=== PATIENT | male | born 1960 | race Caucasian/White ===

== ENCOUNTER 2022-09-01 12:38 | Emergency (ER) | payer OTHER, SELFPAY ==
[2022-09-01 12:43] VITALS: BP 136/80; PULSE 94; O2SAT 97
[2022-09-01 12:56] VITALS: BP 108/68; PULSE 80; RESP 16; O2SAT 96; BMI 43.2
--- NOTE | 2022-09-01 13:51 | PC.NURSE ---
PT REFUSES TO SPEAK TO CARE TEAM, RELAPSE WAS JUST TODAY
--- NOTE | 2022-09-01 13:51 | ED.OVERDOSE ---
HPI - Overdose General Chief Complaint: Overdose Stated Complaint: OD Time Seen by Provider: 09/01/22 13:48 Source: EMS Mode of arrival: ambulatory History of Present Illness HPI Narrative: This is a 61 years old male presented to the emergency room after an overdose heroin at the [employer] he was given Narcan by the call worker person he is now awake and alert. Denies HI and SI, does no want detox complaint: accidental overdose Onset (ago): hour(s) (2) Context: Intentional Overdose: drug/ETOH problems Context: Accidental Overdose: wanted to get high Treatments Prior to Arrival: narcan (4 mg) Related Data Allergies Allergy/AdvReac Type Severity Reaction Status Date / Time No Known Allergies Allergy Verified 09/01/22 12:51 Review of Systems Constitutional: Constitutional: Reports no additional constitutional complaints Eyes: Eyes: Reports no additional eye complaints ENT: Reports system reviewed and no additional complaints, except as documented Cardiovascular: Cardiovascular: Denies Abdominal Cramping after Meds Respiratory: Respiratory: Reports no additional respiratory complaints Gastrointestinal: Gastrointestinal: Denies abdominal pain and Denies belching Musculoskeletal: Musculoskeletal: Reports no additional musculoskeletal complaints [facility] Past Medical History [facility] Narrative: diabetes/opioid abuse Social History Social History Advance Directives: No Physical Exam Vital Signs: Vital Signs: Last Vital Signs Pulse 88 09/01/22 14:10 Resp 18 09/01/22 14:10 BP 108/68 09/01/22 12:56 Pulse Ox 97 09/01/22 14:10 O2 Del Method Room Air 09/01/22 12:56 BMI result Body Mass Index 43.2 Const: General: cooperative Nutritional Appearance: well nourished Orientation/consciousness: patient oriented x3 HEENT: Head: Yes normal to inspection General nose exam: Normal external nose present Face and sinus: Yes normal facial exam Mouth: Normal oral and palatal mucosa present Throat: Yes posterior oropharynx normal Neck: Neck: Yes normal visual inspection Chest: Chest palpation & inspection: normal inspection of the chest Resp: Effort & Inspection: normal respiratory effort Auscultation: clear to auscultation bilaterally Cardio: Jugular venous distension: no JVD Rate: regular rate Rhythm: regular rhythm GI: Inspection: Yes normal to inspection Palpation (GI): Soft to palpation, not firm, nontender and no guarding Auscultation: normal bowel sounds Skin: General skin exam: no rashes or lesions noted and elasticity normal Trauma: no lacerations or abrasions Wounds: no wounds Neuro: General: patient oriented x3 Medical Decision Making Medical Decision Making MDM Narrative: Patient refused detox does no one to talk to Care Team Differential Diagnosis Differential Diagnoses: The differential diagnosis associated with the presentation includes Opioid overdose/depression/psych she Admission/Observation Consideration of admission/observation: Escalation of care including admission/observation considered Discharge Plan Discharge Clinical Impression: Drug overdose Patient Disposition: Home, Self-Care Instructions: Adult Overdose (ED) Referrals: Jackson Church MD [Primary Care Provider] - Interventions: ED Discharge Assessment Last Done: 09/01/22 14:10 Discharge Date/Time: 09/01/22 14:21
[2022-09-01 14:10] VITALS: PULSE 88; RESP 18; O2SAT 97
== END 2022-09-01 14:21 | disposition home or self-care (01) ==
PROVIDERS: Emergency Provider Emergency Medicine; PCP Internal Medicine
DX: R40.4 Transient alteration of awareness (principal); T40.1X1A Poisoning by heroin, accidental (unintentional), initial encounter; Y92.59 Other trade areas as the place of occurrence of the external cause
CPT/HCPCS: 99282